=== PATIENT | female | born 1995 | race Caucasian/White ===

== ENCOUNTER 2018-07-30 13:59 | Observation (INO) | payer BC ==
[~2018-07-30 13:59] MED LIST: ROCURONIUM BROMIDE INJ 50 MG/5 ML VIAL IV ONE; SUCCINYLCHOLINE CHLORIDE INJ 200 MG/10 ML VIAL ONE
[2018-07-30] MEDS ORDERED: KETOROLAC TROMETHAMINE INJ/PF 30 MG/1 ML SDV IV ONE (14:20)
--- NOTE | 2018-07-30 14:21 | ER Document Report ---
ED Medical Screen (RME) - General Chief Complaint: Epigastric Pain Stated Complaint: ABDOMINAL PAIN Time Seen by Provider: 07/30/18 14:18 Notes: 23 years old female presents today with pain over the right upper quadrant with positively identified gallstones at the primary care office. No fever chills but nauseous. Right upper quadrant tenderness noted TRAVEL OUTSIDE OF THE [place] IN LAST 30 DAYS: No - Related Data Allergies/Adverse Reactions: egg [Egg] Allergy (Intermediate, Verified 07/30/18 14:00) n/v dogs Allergy (Intermediate, Uncoded 07/30/18 14:00) swelling Past Medical History - Social History Frequency of alcohol use: None Drug Abuse: None - Past Medical History Cardiac Medical History: Denies: Hx Coronary Artery Disease, Hx Heart Attack, Hx Hypertension Pulmonary Medical History: Denies: Hx Asthma, Hx Bronchitis, Hx COPD, Hx Pneumonia Neurological Medical History: Denies: Hx Cerebrovascular Accident, Hx Seizures Renal/ Medical History: Denies: Hx Peritoneal Dialysis Musculoskeltal Medical History: Denies Hx Arthritis Past Surgical History: Denies: Hx Hysterectomy - Immunizations Hx Diphtheria, Pertussis, Tetanus Vaccination: Yes Physical Exam - Vital signs Vitals: Temp Pulse Resp BP Pulse Ox 98.8 F 91 16 128/83 H 100 07/30/18 14:03 07/30/18 14:03 07/30/18 14:03 07/30/18 14:03 07/30/18 14:03 Course - Vital Signs Vital signs: Temp Pulse Resp BP Pulse Ox 98.8 F 91 16 128/83 H 100 07/30/18 14:03 07/30/18 14:03 07/30/18 14:03 07/30/18 14:03 07/30/18 14:03 Doctor's Discharge - Discharge Referrals: ISAIAH HAQUE VEHICLE COST ENGINEER [Primary Care Provider] - Follow up as needed
[2018-07-30 14:49] LABS: ABSOLUTE EOSINOPHILS # (AUTO) 0.1 10^3/uL (0.0-0.6); ABSOLUTE LYMPHOCYTES (AUTO) 2.1 10^3/uL (0.5-4.7); ABSOLUTE MONOCYTES (AUTO) 0.3 10^3/uL (0.1-1.4); BASOPHILS % (AUTO) 0.5 % (0-2); HEMATOCRIT 40.1 % (36.0-47.0); HEMOGLOBIN 14.1 g/dL (12.0-15.5); LYMPHOCYTES % (AUTO) 32.3 % (13-45); MEAN CORPUSCULAR HEMOGLOBIN 32.1 pg (27.0-33.4); MEAN CORPUSCULAR HGB CONC 35.1 g/dL (32.0-36.0); MEAN CORPUSCULAR VOLUME 91 fl (80-97); MONOCYTES % (AUTO) 4.9 % (3-13); PLATELET COUNT 286 10^3/uL (150-450); RED BLOOD COUNT 4.39 10^6/uL (3.72-5.28); RED CELL DISTRIBUTION WIDTH 12.6 % (11.5-14.0); SEGMENTED NEUTROPHILS % (AUTO) 61.3 % (42-78); TOTAL CELLS COUNTED % (AUTO) 100 %; WHITE BLOOD COUNT 6.6 10^3/uL (4.0-10.5)
[2018-07-30 15:11] LABS: ALANINE AMINOTRANSFERASE 28 U/L (9-52); ALBUMIN 4.4 g/dL (3.5-5.0); ALKALINE PHOSPHATASE 82 U/L (38-126); ANION GAP 12 (5-19); ASPARTATE AMINO TRANSFERASE 23 U/L (14-36); BILIRUBIN,DIRECT 0.3 mg/dL (0.0-0.4); BILIRUBIN,TOTAL 0.4 mg/dL (0.2-1.3); BLOOD UREA NITROGEN 11 mg/dL (7-20); CALCIUM 9.4 mg/dL (8.4-10.2); CARBON DIOXIDE 26 mmol/L (22-30); CHLORIDE 104 mmol/L (98-107); GLUCOSE 84 mg/dL (75-110); LIPASE 246.4 U/L (23-300); POTASSIUM 4.3 mmol/L (3.6-5.0); SODIUM 141.5 mmol/L (137-145)
[2018-07-30] MEDS ORDERED: MORPHINE SULFATE 10 MG/ML INJ IV ONE (15:37)
--- NOTE | 2018-07-30 15:37 | RADIOLOGY REPORT (SQ) ---
EXAM DESCRIPTION: U/S ABDOMEN LIMITED W/O DOP COMPLETED DATE/TIME: 07/30/2018 3:12 pm REASON FOR STUDY: Gallbladder, abdominal pain COMPARISON: None. TECHNIQUE: Dynamic and static grayscale images acquired of the abdomen and recorded on PACS. Additio nal selected color Doppler and spectral images recorded. LIMITATIONS: None. FINDINGS: PANCREAS: No masses. Visualized pancreatic duct normal caliber. LIVER: No masses. Echotexture normal. LIVER VASCULATURE: Normal directional flow of the main portal vein and hepatic veins. GALLBLADDER: Gallstones. Thickened gallbladder wall. Cholecystic fluid. ULTRASOUND-DETECTED SANCHEZ'S SIGN: Negative. INTRAHEPATIC DUCTS AND COMMON DUCT: CBD and intrahepatic ducts normal caliber. No filling defects. INFERIOR VENA CAVA: Normal flow. AORTA: No aneurysm. RIGHT KIDNEY: Normal size. Normal echogenicity. No solid or suspicious masses. No hydronephrosis. No calcifications. PERITONEAL AND RIGHT PLEURAL SPACE: No ascites or effusions. OTHER: No other significant findings. IMPRESSION: Cholelithiasis. Cholecystitis. TECHNICAL DOCUMENTATION: JOB ID: [id number] [employer]- All Rights Reserved Reading location - IP/workstation name: [email or web address]
[2018-07-30 15:39] LABS: APPEARANCE,URINE CLEAR; BILIRUBIN,URINE NEGATIVE (NEGATIVE); COLOR,URINE YELLOW; GLUCOSE, URINE NEGATIVE (NEGATIVE); KETONES,URINE TRACE mg/dL (NEGATIVE); LEUKOCYTE ESTERASE,URINE NEGATIVE (NEGATIVE); NITRITE,URINE NEGATIVE (NEGATIVE); PROTEIN,URINE NEGATIVE (NEGATIVE); UROBILINOGEN,URINE NEGATIVE mg/dL (<2.0)
[2018-07-30] MEDS ORDERED: ONDANSETRON HCL INJ/PF 4 MG/2 ML SDV IV PRN (16:30)
[2018-07-30] MEDS ORDERED: CEFOXITIN INJ 1 GM VIAL IV ONE (16:33)
[2018-07-30] MEDS ORDERED: FENTANYL CITRATE INJ/PF 100 MCG/2 ML AMPUL ONE (16:39)
[2018-07-30] MEDS ORDERED: HYDROMORPHONE HCL INJ/PF 2 MG/ML AMPULE ONE (16:39)
[2018-07-30] MEDS ORDERED: DEXAMETHASONE SOD PHOSPHATE INJ 4 MG/1 ML VIAL ONE (16:40)
[2018-07-30] MEDS ORDERED: MIDAZOLAM 2 MG/2 ML INJ ONE (16:40)
[2018-07-30] MEDS ORDERED: ACETAMINOPHEN 1,000 MG/100 ML RTUPB IV ONE (16:40)
[2018-07-30] MEDS ORDERED: ONDANSETRON HCL INJ/PF 4 MG/2 ML SDV ONE (16:40)
[2018-07-30] MEDS ORDERED: PROPOFOL INJ 200 MG/20 ML VIAL IV ONE (16:40)
[2018-07-30] MEDS ORDERED: BUPIVACAINE HCL 0.25 % INJ/PF (2.5 MG/1 ML) 30 ML VIAL ONE (16:47)
--- NOTE | 2018-07-30 16:59 | PDOC H&P ---
History of Present Illness Admission Date/PCP: ISAIAH HAQUE NP Patient complains of: Severe right upper quadrant pain, fatty food intolerance, gallstones History of Present Illness: JESSICA FRANCIS is a 23 year old female with a complaint of one month history of right upper quadrant pain, worse with fatty foods. Her pain has progressed to the point that it is present at all times. She also has reflux, however her current sensation of pain is very different from her typical reflux. She rates her pain at 8 out of 10, and it is situated in her right upper quadrant. It radiates around to her back. She has accompanying nausea and vomiting. It is worse approximately 30 minutes after eating something greasy or fatty. The patient has taken Nexium without relief. The patient underwent ultrasound showing gallstones and a thickened gallbladder wall. The patient denies headache, fevers, chills, chest pain, shortness of breath, dizziness, blurry vision, melena, hematochezia, hematemesis. She does have fatigue, malaise, abdominal pain, nausea, and vomiting. Past Medical History Cardiac Medical History: Denies: Coronary Artery Disease, Myocardial Infarction, Hypertension Pulmonary Medical History: Denies: Asthma, Bronchitis, Chronic Obstructive Pulmonary Disease (COPD), Pneumonia Neurological Medical History: Denies: Seizures Musculoskeltal Medical History: Denies: Arthritis Hematology: Denies: Anemia Past Surgical History Past Surgical History: Denies: Hysterectomy Social History Smoking Status: Never Smoker Frequency of Alcohol Use: Social Last Alcohol Use: 07/26/18 Hx Recreational Drug Use: No Hx Prescription Drug Abuse: No - Advance Directive Resuscitation Status: Full Code Family History Parental Family History Reviewed: Yes Children Family History Reviewed: Yes Sibling(s) Family History Reviewed.: Yes Medication/Allergy Allergies/Adverse Reactions: egg [Egg] Allergy (Intermediate, Verified 07/30/18 14:00) n/v dogs Allergy (Intermediate, Uncoded 07/30/18 14:00) swelling Review of Systems Constitutional: PRESENT: anorexia. ABSENT: chills, fatigue, fever(s), headache( s) Eyes: ABSENT: visual disturbances Ears: ABSENT: hearing changes Nose, Mouth, and Throat: ABSENT: sore throat Cardiovascular: PRESENT: chest pain Respiratory: ABSENT: cough, dyspnea Gastrointestinal: PRESENT: abdominal pain, nausea, vomiting. ABSENT: hematemesis, hematochezia, melena Genitourinary: ABSENT: dysuria Musculoskeletal: PRESENT: back pain Integumentary: ABSENT: pruritus, rash Neurological: ABSENT: abnormal speech, confusion, convulsions, dizziness Psychiatric: ABSENT: anxiety, depression Endocrine: ABSENT: cold intolerance, heat intolerance Hematologic/Lymphatic: ABSENT: easy bleeding, easy bruising Physical Exam Vital Signs: Temp Pulse Resp BP Pulse Ox 98.8 F 91 16 128/83 H 100 07/30/18 14:03 07/30/18 14:03 07/30/18 14:03 07/30/18 14:03 07/30/18 14:03 Intake & Output 07/29/18 07/30/18 07/31/18 06:59 06:59 06:59 Weight 61.8 kg General appearance: PRESENT: no acute distress Head exam: PRESENT: atraumatic, normocephalic Eye exam: PRESENT: EOMI, PERRLA. ABSENT: scleral icterus Mouth exam: PRESENT: moist, neck supple Teeth exam: ABSENT: poor dentation Neck exam: ABSENT: meningismus, tenderness, thyromegaly, tracheal deviation Respiratory exam: PRESENT: clear to auscultation paulo, unlabored. ABSENT: chest wall tenderness, tachypnea, wheezes Cardiovascular exam: PRESENT: RRR Pulses: PRESENT: normal radial pulses Vascular exam: PRESENT: normal capillary refill. ABSENT: pallor GI/Abdominal exam: PRESENT: Contreras's sign, soft, tenderness Rectal exam: PRESENT: deferred Extremities exam: ABSENT: clubbing Musculoskeletal exam: ABSENT: deformity Neurological exam: PRESENT: alert, awake, oriented to person, oriented to place , oriented to time, oriented to situation, CN II-XII grossly intact. ABSENT: motor sensory deficit Psychiatric exam: PRESENT: anxious. ABSENT: agitated, depressed Focused psych exam: ABSENT: delusional Skin exam: ABSENT: cyanosis, erythema, jaundice Results Laboratory Results: 07/30/18 14:31 07/30/18 14:31 07/30/18 07/30/18 07/30/18 14:31 14:31 15:19 WBC 6.6 RBC 4.39 Hgb 14.1 Hct 40.1 MCV 91 MCH 32.1 MCHC 35.1 RDW 12.6 Plt Count 286 Seg Neutrophils % 61.3 Lymphocytes % 32.3 Monocytes % 4.9 Eosinophils % 1.0 Basophils % 0.5 Absolute Neutrophils 4.0 Absolute Lymphocytes 2.1 Absolute Monocytes 0.3 Absolute Eosinophils 0.1 Absolute Basophils 0.0 Sodium 141.5 Potassium 4.3 Chloride 104 Carbon Dioxide 26 Anion Gap 12 BUN 11 Creatinine 0.75 Est GFR ( Amer) > 60 Est GFR (Non-Af Amer) > 60 Glucose 84 Calcium 9.4 Total Bilirubin 0.4 AST 23 ALT 28 Alkaline Phosphatase 82 Total Protein 8.0 Albumin 4.4 Lipase 246.4 Urine Color YELLOW Urine Appearance CLEAR Urine pH 6.0 Ur Specific [place] 1.020 Urine Protein NEGATIVE Urine Glucose (UA) NEGATIVE Urine Ketones TRACE H Urine Blood MODERATE H Urine Nitrite NEGATIVE Ur Leukocyte Esterase NEGATIVE Urine WBC (Auto) 2 Urine RBC (Auto) 6 Impressions: Abdomen Ultrasound 07/30/18 14:19 IMPRESSION: Cholelithiasis. Cholecystitis. Assessment & Plan - Diagnosis (1) Cholecystitis Is this a current diagnosis for this admission?: Yes - Plan Summary Plan Summary: There is a 23-year-old female with right upper quadrant pain, fatty food intolerance, gallstones, and thickening of her gallbladder wall. I believe she has cholecystitis. I will start her on antibiotics. I have recommended cholecystectomy tonight, and she has agreed. Risks/benefits discussed, informed consent obtained, and all questions answered.
[2018-07-30] MEDS ORDERED: FENTANYL CITRATE INJ/PF 100 MCG/2 ML AMPUL IV PRN ×3 (17:30)
[2018-07-30] MEDS ORDERED: MEPERIDINE HCL/PF INJ 25 MG/1 ML DISP.SYRIN IV PRN (17:30)
[2018-07-30] MEDS ORDERED: PROMETHAZINE HCL INJ 25 MG/1 ML VIAL IV PRN (17:30)
[2018-07-30] MEDS ORDERED: DIPHENHYDRAMINE HCL 50 MG/ML VIAL IV PRN (17:30)
[2018-07-30] MEDS ORDERED: CEFAZOLIN INJ 1 GM VIAL ONE (17:48)
[2018-07-30] MEDS ORDERED: CEFOXITIN SODIUM 2 GM in DEXTROSE 5%-WATER 100 ML IV ONE (18:00)
[2018-07-30] MEDS: PROMETHAZINE HCL INJ 25 MG/1 ML VIAL ONE ×3 (18:55→19:25)
[2018-07-30] MEDS: MORPHINE SULFATE 10 MG/ML INJ IV PRN (20:02)
--- NOTE | 2018-07-30 21:49 | Operative Report ---
Nonrecallable Operative Report DATE OF SURGERY: 07/30/18 PREOPERATIVE DIAGNOSIS: Cholecystitis. POSTOPERATIVE DIAGNOSIS: 1. Cholecystitis. 2. Focus of ectopic liver tissue adherent to the inferior gallbladder OPERATION: Laparoscopic cholecystectomy. SURGEON: DOLORES TYSON ANESTHESIA: GA TISSUE REMOVED OR ALTERED: Gallbladder COMPLICATIONS: None apparent ESTIMATED BLOOD LOSS: Minimal PROCEDURE: Drains/implants: None. Procedure in detail: After informed consent was obtained, the patient was brought into the operating room and laid in the supine position. The area of the abdomen was prepped and draped in a normal sterile fashion. A curvilinear infraumbilical incision was created with a 15 blade scalpel. Dissection was carried through the subcutaneous tissue using sharp and blunt dissection. The cicatrix was identified, grasped with a Antonette clamp, and retracted upwards. The linea alba fascia was incised sharply. The abdomen was entered sharply. The balloon trocar was inserted, and pneumoperitoneum was achieved. A subxiphoid 5 mm port was placed under direct laparoscopic visualization. 2 more 5 mm ports were placed in the right upper quadrant in similar fashion. Atraumatic graspers were placed through the 5 mm ports. Upon retraction of the gallbladder, an ectopic focus of liver tissue was found to be adherent to the undersurface of the gallbladder, in the inferior position. The gallbladder was retracted cephalad and laterally. Dissection was begun in the triangle of Calot. The cystic duct and cystic artery were fully visualized and skeletonized , seeing the liver the triangle. Once the critical view of safety was obtained , the cystic duct and cystic artery were clipped and cut with laparoscopic instruments. The gallbladder was then removed from the liver using Bovie electrocautery. The small focus of ectopic liver tissue was left adherent to the gallbladder. It was removed as one piece. The gallbladder was placed into an Endo Catch bag and pulled out through the umbilicus. The camera was reinserted, and the hilum was inspected. The hilum was found to be free of any leakage of blood or bile. Once this was confirmed, the 5 mm trochars were removed under direct laparoscopic visualization. Next the infraumbilical trocar was removed, and pneumoperitoneum was relieved. The infraumbilical fascia was closed using 0 Vicryl suture in [id number] fashion. The overlying skin was closed using 4-0 Vicryl Rapide suture in subcuticular fashion. All sponge, instrument, and needle counts were correct x2. Condition: Stable.
[2018-07-31] MEDS: HYDROCODONE/ACETAMINOPHEN 10-325 MG TABLET PO PRN ×3 (00:25→09:38)
[2018-07-31] MEDS: MORPHINE SULFATE 10 MG/ML INJ IV PRN (03:50)
[2018-07-31] MEDS ORDERED: LANSOPRAZOLE 30 MG TAB.RAP.DR PO SCH (06:00)
--- NOTE | 2018-07-31 06:50 | PDOC DISCHARGE SUMMARY ---
General - Admit/Disc Date/PCP Admission Date/Primary Care Provider: 07/30/18 16:53 ISAIAH HAQUE NP Discharge Date: 07/31/18 - Discharge Diagnosis (1) Cholecystitis Is this a current diagnosis for this admission?: Yes - Additional Information Resuscitation Status: Full Code Discharge Diet: As Tolerated Discharge Activity: No Lifting Over 10 Pounds Home Medications: Ethinyl Estradiol/Drospirenone [Afia 28 Tablet] 1 each PO DAILY 07/30/18 History of Present Illness History of Present Illness: JESSICA FRANCIS is a 23 year old female with a complaint of one month history of right upper quadrant pain, worse with fatty foods. Her pain has progressed to the point that it is present at all times. She also has reflux, however her current sensation of pain is very different from her typical reflux. She rates her pain at 8 out of 10, and it is situated in her right upper quadrant. It radiates around to her back. She has accompanying nausea and vomiting. It is worse approximately 30 minutes after eating something greasy or fatty. The patient has taken Nexium without relief. The patient underwent ultrasound showing gallstones and a thickened gallbladder wall. The patient denies headache, fevers, chills, chest pain, shortness of breath, dizziness, blurry vision, melena, hematochezia, hematemesis. She does have fatigue, malaise, abdominal pain, nausea, and vomiting. Hospital Course Hospital Course: The patient was taken to the operating room for definitive surgical care. Laparoscopic cholecystectomy was successfully performed. The patient was taken to the floor in stable condition. On postoperative day #1 the patient was ambulating, tolerating a diet, and her pain was controlled with oral pain medications. At this time it was felt that she had reached maximal hospital benefit, and was fit for discharge. Physical Exam Vital Signs: Temp Pulse Resp BP Pulse Ox 97.7 F 78 16 93/50 L 99 07/31/18 03:50 07/31/18 03:50 07/31/18 03:50 07/31/18 03:50 07/31/18 03:50 Intake & Output 07/29/18 07/30/18 07/31/18 06:59 06:59 06:59 Intake Total 1540 Output Total 610 Balance 930 Results Impressions: Abdomen Ultrasound 07/30/18 14:19 IMPRESSION: Cholelithiasis. Cholecystitis. Qualifiers - * PATIENT BEING DISCHARGED WITH ANY OF THE FOLLOWING DIAGNOSIS: No Plan Discharge Plan: Discharge home. Diet as tolerated. Activity: No lifting greater than 10 pounds x 2 weeks. Follow-up with me in 7-10 days. [place] 10/325 mg p.o. every 6 hours as needed for pain. Okay to shower on Saturday. Time Spent: Less than 30 Minutes
[2018-07-31 09:38] VITALS: BP 93/52
--- NOTE | 2018-08-04 08:26 | ER Document Report ---
ED General - General Chief Complaint: Epigastric Pain Stated Complaint: ABDOMINAL PAIN Time Seen by Provider: 07/30/18 14:18 TRAVEL OUTSIDE OF THE [place] IN LAST 30 DAYS: No - HPI Patient complains to provider of: Gallbladder pain Onset: Other - 23-year-old female who presents for evaluation of biliary colic which she has been suffering for the last month. She has been seen in the outpatient setting for this twice and is currently scheduled to see a surgeon tomorrow however over the last week she is noted that her pain is become unbearable and that she has had recurrent vomiting anytime she has eaten anything. Initially it had been only when she was eating fatty foods or drinking anything with alcohol on it but now it is persistent and intractable. She underwent an ultrasound today prior to arrival and was seen by her primary physician who also did blood test. She states that she is here to see Dr. Jha. - Related Data Allergies/Adverse Reactions: egg [Egg] Allergy (Intermediate, Verified 07/30/18 14:00) n/v dogs Allergy (Intermediate, Uncoded 07/30/18 14:00) swelling Past Medical History - General Information source: Patient - Social History Smoking Status: Never Smoker Frequency of alcohol use: None Drug Abuse: None Family History: None Patient has suicidal ideation: No Patient has homicidal ideation: No - Past Medical History Cardiac Medical History: Denies: Hx Coronary Artery Disease, Hx Heart Attack, Hx Hypertension Pulmonary Medical History: Denies: Hx Asthma, Hx Bronchitis, Hx COPD, Hx Pneumonia Neurological Medical History: Denies: Hx Cerebrovascular Accident, Hx Seizures Renal/ Medical History: Denies: Hx Peritoneal Dialysis Musculoskeletal Medical History: Denies Hx Arthritis Psychiatric Medical History: Denies: Hx Depression Past Surgical History: Denies: Hx Hysterectomy - Immunizations Hx Diphtheria, Pertussis, Tetanus Vaccination: Yes Review of Systems - Review of Systems -: Yes All other systems reviewed and negative Physical Exam - Vital signs Vitals: Temp Pulse Resp BP Pulse Ox 98.8 F 91 16 128/83 H 100 07/30/18 14:03 07/30/18 14:03 07/30/18 14:03 07/30/18 14:03 07/30/18 14:03 - General General appearance: Appears well, Alert - HEENT Head: Normocephalic, Atraumatic Eyes: Normal Pupils: PERRL - Respiratory Respiratory status: No respiratory distress Chest status: Nontender Breath sounds: Normal Chest palpation: Normal - Cardiovascular Rhythm: Regular Heart sounds: Normal auscultation Murmur: No - Abdominal Inspection: Normal Tenderness: Rebound, Other - Marked tenderness in the right upper quadrant of the abdomen with a positive Contreras sign Organomegaly: No organomegaly - Back Back: Normal, Nontender - Extremities General upper extremity: Normal inspection, Nontender, Normal color, Normal ROM , Normal temperature General lower extremity: Normal inspection, Nontender, Normal color, Normal ROM , Normal temperature, Normal weight bearing. No: Andrea's sign - Neurological Neuro grossly intact: Yes Cognition: Normal Orientation: AAOx4 Nelson Coma Scale Eye Opening: Spontaneous [place] Coma Scale Verbal: Oriented [place] Coma Scale Motor: Obeys Commands [place] Coma Scale Total: 15 Speech: Normal Motor strength normal: LUE, RUE, LLE, RLE Sensory: Normal - Psychological Associated symptoms: Normal affect, Normal mood Course - Re-evaluation Re-evalutation: 23-year-old female presents for evaluation of biliary colic. She states that she is here to see Dr. Jha. On examination she does have positive Contreras sign had an ultrasound which did demonstrate Irish lithiasis without obvious cholecystitis earlier today. Because of her intractable vomiting and persistent pain will contact Dr. Jha. Have called Dr. Jha who agrees to see the patient in the emergency department plan for admission and surgery. We will place patient on n.p.o. status. We will initiate fluids for the patient and have administered morphine for pain control emergency department. Dr. Jha is seen evaluate the patient will plan for admission. - Vital Signs Vital signs: Temp Pulse Resp BP Pulse Ox 98.3 F 67 16 93/52 L 97 07/31/18 09:37 07/31/18 09:37 07/31/18 09:37 07/31/18 09:37 07/31/18 09:37 - Laboratory Result Diagrams: 07/30/18 14:31 07/30/18 14:31 Laboratory results interpreted by me: 07/30/18 15:19 Urine Ketones TRACE H Urine Blood MODERATE H Discharge - Discharge Clinical Impression: Cholelithiases Qualifiers: Cholelithiasis location: other site Biliary obstruction: with biliary obstruction Qualified Code(s): K80.81 - Other cholelithiasis with obstruction Abdominal pain Qualifiers: Abdominal location: unspecified location Qualified Code(s): R10.9 - Unspecified abdominal pain Vomiting Qualifiers: Vomiting type: unspecified Vomiting Intractability: unspecified Nausea presence : unspecified Qualified Code(s): R11.10 - Vomiting, unspecified Condition: Stable Disposition: HOME, SELF-CARE
== END 2018-07-31 10:30 | disposition home or self-care (01) ==
LOC: ER 13:59 → INTOOBSV 16:53 → EH 16:53 → 2N 19:30
PROVIDERS: ADMIT Surgery; ATTEND Surgery
PROC: 0FT44ZZ Resection of Gallbladder, Percutaneous Endoscopic Approach (ICD-10-PCS; principal; 2018-07-30 17:00)
DX: K80.10 Calculus of gallbladder with chronic cholecystitis without obstruction (principal); Q44.7 Other congenital malformations of liver; K21.9 Gastro-esophageal reflux disease without esophagitis
CPT/HCPCS: 99285; 96372; 96374; 36415; 83690; 85025; 81025; 80053; 81001; 88304 ×2; 76705; 47562; G0378 ×2; J2250; J0690; J3490; J1100; J1885; J2270 ×2; J1170; J2550; J0330; J2405 ×2; J2704; J0131; 790; J3010

== ENCOUNTER 2018-12-23 05:27 | Day surgery (SDC) | payer BC ==
[2018-12-18 11:03] LABS: HEMATOCRIT 40.8 % (36.0-47.0); HEMOGLOBIN 14.2 g/dL (12.0-15.5); MEAN CORPUSCULAR HEMOGLOBIN 31.7 pg (27.0-33.4); MEAN CORPUSCULAR HGB CONC 34.9 g/dL (32.0-36.0); MEAN CORPUSCULAR VOLUME 91 fl (80-97); PLATELET COUNT 233 10^3/uL (150-450); RED BLOOD COUNT 4.48 10^6/uL (3.72-5.28); RED CELL DISTRIBUTION WIDTH 12.5 % (11.5-14.0)
[2018-12-18 11:12] LABS: APPEARANCE,URINE SLIGHTLY-CLOUDY; BILIRUBIN,URINE NEGATIVE (NEGATIVE); COLOR,URINE YELLOW; GLUCOSE, URINE NEGATIVE (NEGATIVE); KETONES,URINE NEGATIVE (NEGATIVE); LEUKOCYTE ESTERASE,URINE NEGATIVE (NEGATIVE); NITRITE,URINE NEGATIVE (NEGATIVE); PROTEIN,URINE NEGATIVE (NEGATIVE); URINE SPECIFIC GRAVITY 1.024; UROBILINOGEN,URINE NEGATIVE mg/dL (<2.0)
[2018-12-18 11:38] LABS: ALANINE AMINOTRANSFERASE 21 U/L (9-52); ALBUMIN 4.3 g/dL (3.5-5.0); ALKALINE PHOSPHATASE 57 U/L (38-126); ANION GAP 9 (5-19); ASPARTATE AMINO TRANSFERASE 20 U/L (14-36); BILIRUBIN,DIRECT 0.2 mg/dL (0.0-0.4); BILIRUBIN,TOTAL 0.4 mg/dL (0.2-1.3); BLOOD UREA NITROGEN 14 mg/dL (7-20); CALCIUM 9.9 mg/dL (8.4-10.2); CARBON DIOXIDE 26 mmol/L (22-30); CHLORIDE 106 mmol/L (98-107); GLUCOSE 91 mg/dL (75-110); POTASSIUM 4.4 mmol/L (3.6-5.0); SODIUM 140.7 mmol/L (137-145); TOTAL PROTEIN 7.8 g/dL (6.3-8.2)
[~2018-12-23 05:27] MED LIST changes: +CEFAZOLIN 1 GM/D5W RTU 1 GM/50 ML RTUPB IV PRN; +LACTATED RINGERS 1000 ML IV PRN; +LIDOCAINE 0.5% INJ-PF (5 MG/ML) 50 ML SDV SUBCUT PRN; -ROCURONIUM BROMIDE INJ 50 MG/5 ML VIAL IV ONE; -SUCCINYLCHOLINE CHLORIDE INJ 200 MG/10 ML VIAL ONE
[2018-12-23] MEDS ORDERED: FENTANYL CITRATE INJ/PF 100 MCG/2 ML AMPUL ONE (06:52)
[2018-12-23] MEDS ORDERED: PROPOFOL INJ 200 MG/20 ML VIAL IV ONE (06:52)
[2018-12-23] MEDS ORDERED: MIDAZOLAM 2 MG/2 ML INJ ONE (06:52)
[2018-12-23] MEDS ORDERED: LIDOCAINE 2% INJ-PF (100 MG/5 ML) SYRINGE ONE (06:52)
[2018-12-23] MEDS ORDERED: ACETAMINOPHEN 1,000 MG/100 ML RTUPB IV ONE (06:52)
[2018-12-23] MEDS ORDERED: DEXMEDETOMIDINE INJ 80 MCG/20 ML VIAL IV ONE (06:52)
[2018-12-23] MEDS ORDERED: CEFAZOLIN 1 GM/D5W RTU 1 GM/50 ML RTUPB IV ONE (07:19)
[2018-12-23] MEDS ORDERED: ONDANSETRON HCL INJ/PF 4 MG/2 ML SDV IV PRN (07:20)
[2018-12-23] MEDS ORDERED: FENTANYL CITRATE INJ/PF 100 MCG/2 ML AMPUL IV PRN ×3 (07:20)
[2018-12-23] MEDS ORDERED: PROMETHAZINE HCL INJ 25 MG/1 ML VIAL IV PRN ×3 (07:20→09:03)
[2018-12-23] MEDS ORDERED: MEPERIDINE HCL/PF INJ 25 MG/1 ML DISP.SYRIN IV PRN (07:20)
[2018-12-23] MEDS ORDERED: MORPHINE SULFATE 10 MG/ML INJ IV PRN (07:20)
[2018-12-23] MEDS ORDERED: DIPHENHYDRAMINE HCL 50 MG/ML VIAL IV PRN (07:20)
[2018-12-23] MEDS ORDERED: BUPIVACAINE HCL 0.25 % INJ/PF (2.5 MG/1 ML) 30 ML VIAL ONE (07:23)
[2018-12-23] MEDS ORDERED: SUGAMMADEX SODIUM 200 MG/2 ML SDV IV ONE (07:44)
[2018-12-23] MEDS ORDERED: SCOPOLAMINE HYDROBROMIDE 1.5 MG PATCH.TD72 ONE (07:44)
[2018-12-23] MEDS ORDERED: OXYCODONE-ACETAMINOPHEN 5-325 MG TABLET PO PRN ×2 (09:03)
[2018-12-23] MEDS ORDERED: OXYCODONE-ACETAMINOPHEN 5-325 MG TABLET ONE (09:17)
--- NOTE | 2018-12-23 09:31 | OPERATIVE REPORT E ---
Operative Report NAME: JESSICA FRANCIS : 1995 AGE: 23Y DATE OF SURGERY: 12/23/2018 ROOM: PREOPERATIVE DIAGNOSIS: PELVIC PAIN. POSTOPERATIVE DIAGNOSIS: PELVIC PAIN WITH CUL-DE-SAC ENDOMETRIOSIS. OPERATION: D and C and laparoscopy. SURGEON: TAD HAQUE M.D. ANESTHESIA: General, and 0.25% Marcaine. ESTIMATED BLOOD LOSS: Negligible. PERTINENT HISTORY AND OPERATIVE FINDINGS: This is a 23-year-old female who had been having trouble with increasing amounts of pelvic pain. She opted to undergo laparoscopy to further evaluate the cause of this. Of interest, back in July of 2018 she did have a laparoscopic cholecystectomy. However, there did not appear to be any scar tissue from that in followup on our exam. OPERATIVE PROCEDURE: The patient was brought into the OR, placed on the table in a supine position, inducted under general anesthesia. Following this, she was repositioned in a dorsal lithotomy position, prepped and draped in a sterile fashion. The bladder was emptied of about 50 mL of clear yellow urine. Pelvic under anesthesia was performed. A bivalve speculum was inserted and the cervix was grasped on its anterior lip with a single-toothed tenaculum. The uterus was then sounded to 7 cm. It was dilated with Oliva dilators and curetted with a small sharp curette. A tenaculum probe was inserted. The other equipment was removed. Attention was turned toward the abdominal wall. A Veress needle was introduced umbilically, carried through the various layers until the abdominal cavity was entered. Upon entering the abdominal cavity, the abdomen was picked up. A drop of saline easily egressed into the peritoneal cavity. The Veress needle was then connected to a hose delivering CO2. At approximately an opening pressure of 7 cm of water. she had 2.9 cm of CO2 injected to a pressure of 15 cm of water, and then the Veress needle was closed and removed. A small incision was made infraumbilical and carried through the various layers until the fascia was reached. Then using a trocar and sleeve, this was inserted gently through the abdominal wall into the abdominal cavity. There was easy egress of the CO2. We let a little bit out and then the laparoscope was inserted. There was good visualization of the abdomen. A second incision was made suprapubically. Through this incision, a trocar and sleeve was inserted. The trocar was removed, and through a sleeve a probe was inserted. The patient was hooked up to CO2. She had a continuous high flow. We did take pictures of the pelvis, the cul-de-sac, the tubes, ovaries, bladder. We also took pictures of the liver and the general contour of the abdomen. She did have pelvic endometriosis in the cul-de-sac and on the uterosacral ligaments, but I did not see any on the uterus per se or the bladder. The appendix appeared to be normal. The rest of the bowel appeared to be normal and as stated, so did the liver. The gallbladder had been removed. This terminated the procedure. The lower sleeve was removed. The CO2 was allowed to escape. The upper sleeve was removed. The incisions had 3 mL of 0.25% Marcaine injected in the suprapubic incision and 4 mL of 0.25% Marcaine injected in the subumbilical incision. The fascia was then closed in the subumbilical incision with 0 Dexon and the fascia was closed in the suprapubic incision with 0 Dexon. The skin edges were brought together in the subumbilical incision with a subcuticular using 4-0 Prolene. The skin edges in the suprapubic incision were closed with interrupted using 4-0 Prolene. Attention was then turned back to the pelvis. The tenaculum probe was inserted, the bivalve speculum was inserted, and the uterus and cervix were inspected. There was no active bleeding. This terminated the procedure. The anesthesia was discontinued. The patient was placed back in the supine position and transferred to the recovery room in satisfactory condition. Negative for blood loss. DICTATING PHYSICIAN: TAD HAQUE M.D. [id number] PHY#: [id number] ID: [id number] JOB#: [id number] ACCT: [id number] cc:TAD HAQUE M.D. >
[2018-12-23 10:20] VITALS: BP 119/71
[2018-12-23] MEDS ORDERED: GLYCOPYRROLATE 1 MG/5 ML SYRINGE ONE (13:37)
[2018-12-23] MEDS ORDERED: ONDANSETRON HCL INJ/PF 4 MG/2 ML SDV ONE (13:37)
[2018-12-23] MEDS ORDERED: KETOROLAC TROMETHAMINE 60 MG/2 ML SDV ONE (13:37)
[2018-12-23] MEDS ORDERED: METOCLOPRAMIDE HCL INJ/PF 10 MG/2 ML SDV ONE (13:37)
[2018-12-23] MEDS ORDERED: SUCCINYLCHOLINE CHLORIDE INJ 200 MG/10 ML VIAL ONE (13:37)
[2018-12-23] MEDS ORDERED: ROCURONIUM BROMIDE INJ 50 MG/5 ML VIAL IV ONE (13:37)
[2018-12-23] MEDS ORDERED: DEXAMETHASONE SOD PHOSPHATE INJ 4 MG/1 ML VIAL ONE (13:37)
== END 2018-12-23 10:15 | disposition home or self-care (01) ==
LOC: OROUT 05:27
PROVIDERS: ATTEND Obstetrics & Gynecology
DX: R10.2 Pelvic and perineal pain (principal); N80.3 Endometriosis of pelvic peritoneum
CPT/HCPCS: 36415; 85027; 81025; 80053; 81001; 88305 ×2; 58558; J2250; J0690; J3490 ×4; J1100; J1885; J3010; J2001; J2765; J0330; J2405; J2704; J0131; 790